=== PATIENT | female | born 1950 | race Caucasian/White ===

== ENCOUNTER → 2016-11-26 | Outpatient (CLI) | payer OTHER ==
[2016-11-26 13:02] LABS: ESTIMATED AVERAGE GLUCOSE 123 mg/dl; HA1C FLAG Normal (Normal)
[2016-11-26 13:10] LABS: CALCIUM 9.2 mg/dl (8.5-10.1)
[2016-11-26 13:11] LABS: ALT/SGPT 19 U/L (12-78); AST/SGOT 11 U/L (15-37); BLOOD UREA NITROGEN 16 mg/dl (7-18); BUN/CREATININE RATIO 17.8 (10-20); CARBON DIOXIDE 29 mmol/L (21-32); CHLORIDE 107 mmol/L (98-107); CHOLESTEROL 173 mg/dl (0-200); CREATININE 0.87 mg/dl (0.60-1.20); GLUCOSE 100 mg/dl (70-99); POTASSIUM 4.6 mmol/L (3.5-5.1); SODIUM 141 mmol/L (136-145); TRIGLYCERIDES 100 mg/dl (0-150); VERY LOW DENSITY LIPOPROT CALC 20 mg/dl
[2016-11-26 13:18] LABS: ALB/GLOB RATIO 1.4 (0.9-2); ALKALINE PHOSPHATASE 61 U/L (45-117); CHOLESTEROL/HDL RATIO 2.3; HDL CHOLESTEROL 75 mg/dl; LDL CHOLESTEROL CALCULATED 78 mg/dl
== END | disposition home or self-care (01) ==
LOC: C.LABBFT 08:04
PROVIDERS: ATTEND Nurse Practitioner
DX: R73.01 Impaired fasting glucose (principal)

== ENCOUNTER → 2017-04-08 | Outpatient (CLI) | payer OTHER ==
--- NOTE | 2017-04-08 12:41 | MAMMOGRAPHY REPORT ---
BILATERAL DIGITAL SCREENING MAMMOGRAM WITH CAD: 04/08/2017 CLINICAL HISTORY: Routine screening. Patient has no complaints. TECHNIQUE: Current study was also evaluated with a Computer Aided Detection (CAD) system. Bilateral CC and MLO views were obtained. COMPARISON: Comparison is made to exams dated: 04/07/2016 mammogram, 03/28/2015 mammogram, 03/27/2014 m ammogram, 03/23/2013 mammogram, 03/22/2012 mammogram, and 03/20/2011 mammogram - [facility] enter. BREAST COMPOSITION: The tissue of both breasts is heterogeneously dense, which may obscure small mas ses. FINDINGS: No suspicious masses, calcifications, or areas of architectural distortion are noted in ei ther breast. There has been no significant interval change compared to prior exams. Bilateral benign -appearing calcifications are again noted. IMPRESSION: ACR BI-RADS CATEGORY 2: BENIGN There is no mammographic evidence of malignancy. A 1 year screening mammogram is recommended. The pa tient will receive written notification of the results. Approximately 10% of breast cancers are not detected with mammography. A negative mammographic report should not delay biopsy if a clinically suggestive mass is present. Nataly Okeefe M.D. ah/:04/08/2017 12:12:08 Felt Cutter: Lita BLEVINS(R)(M), [facility] letter sent: Normal 1/2 BI-RADS Code: ACR BI-RADS Category 2: Benign
== END | disposition home or self-care (01) ==
LOC: C.MAMM 10:34
PROVIDERS: ATTEND Nurse Practitioner
DX: Z12.31 Encounter for screening mammogram for malignant neoplasm of breast (principal)

== ENCOUNTER → 2017-04-22 | Outpatient (CLI) | payer OTHER | END | disposition home or self-care (01) | LOC: C.PAPS 14:04 | PROVIDERS: ATTEND Obstetrics & Gynecology | DX: Z12.4 Encounter for screening for malignant neoplasm of cervix (principal); Z11.51 Encounter for screening for human papillomavirus (HPV) ==

== ENCOUNTER → 2017-06-07 | Outpatient (CLI) | payer OTHER ==
[2017-06-07 12:21] LABS: MEAN CELL VOLUME 90.3 fL (80-100); MEAN CORPUSCULAR HEMOGLOBIN 30.5 pg (25-34); MEAN CORPUSCULAR HGB CONC 33.7 g/dl (32-36); MEAN PLATELET VOLUME 9.5 fL (7.4-10.4); PLATELET COUNT 272 K/uL (130-400); RED BLOOD COUNT 4.76 M/uL (4.2-5.4); WHITE BLOOD COUNT 5.73 K/uL (4.8-10.8)
[2017-06-07 12:28] LABS: ALT/SGPT 22 U/L (12-78); BLOOD UREA NITROGEN 14 mg/dl (7-18); BUN/CREATININE RATIO 15.6 (10-20); CARBON DIOXIDE 29 mmol/L (21-32); CHLORIDE 104 mmol/L (98-107); CREATININE 0.92 mg/dl (0.60-1.20); GLUCOSE 110 mg/dl (70-99); POTASSIUM 4.6 mmol/L (3.5-5.1); SODIUM 139 mmol/L (136-145)
[2017-06-07 12:30] LABS: ALB/GLOB RATIO 1.1 (0.9-2); ALKALINE PHOSPHATASE 76 U/L (45-117); AST/SGOT 14 U/L (15-37); ESTIMATED AVERAGE GLUCOSE 120 mg/dl; HA1C FLAG Normal (Normal)
[2017-06-07 12:30] LABS: CHOLESTEROL/HDL RATIO 2.8
== END | disposition home or self-care (01) ==
LOC: C.LABBFT 07:47
PROVIDERS: ATTEND Nurse Practitioner
DX: E78.00 Pure hypercholesterolemia, unspecified (principal); R73.01 Impaired fasting glucose; I47.1 Supraventricular tachycardia

== ENCOUNTER → 2017-09-08 | Outpatient (CLI) | payer OTHER | END | disposition home or self-care (01) | LOC: C.PATHSPEC 16:32 | PROVIDERS: ATTEND Physician Assistant | DX: L57.0 Actinic keratosis (principal) ==

== ENCOUNTER → 2017-10-04 | Outpatient (CLI) | payer OTHER ==
--- NOTE | 2017-10-04 09:51 | DIAGNOSTIC IMAGING REPORT ---
C-SPINE ROUTINE 4 OR 5 VIEWS CLINICAL HISTORY: Neck stiffness. COMPARISON STUDY: No previous studies for comparison. FINDINGS: Alignment of the cervical spine is anatomic. There is no fracture or suspicious lesion. Vertebral body heights are maintained. There is moderate multilevel bony neural foraminal narrowing. There is mild disc space narrowing at C5-C6. There is moderate multilevel facet arthrosis. There is uncovertebral hypertrophy. IMPRESSION: 1. No acute cervical spine fracture or subluxation. 2. Moderate multilevel bony neural foraminal narrowing. Moderate multilevel facet arthrosis and mild to moderate multilevel degenerative disc disease. Electronically signed by: Figueroa Cain M.D. 10/04/2017 9:49 AM Dictated Date/Time: 10/04/2017 9:45 AM
== END | disposition home or self-care (01) ==
LOC: C.RAD 09:04
PROVIDERS: ATTEND Nurse Practitioner
DX: M43.6 Torticollis (principal)

== ENCOUNTER → 2017-11-08 | Outpatient (CLI) | payer OTHER ==
--- NOTE | 2017-11-08 10:46 | DIAGNOSTIC IMAGING REPORT ---
CT LUNG SCREENING, LOW DOSE WITH COMPUTER-AIDED DETECTION (CAD) CLINICAL HISTORY: Tobacco use. COMPARISON STUDY: No previous studies for comparison. CT DOSE: 71.91 mGy.cm TECHNIQUE: Low-dose helical CT was acquired without intravenous contrast from lung apices to bases and reconstructed at 2.5 mm every 2 mm. CAD was utilized for this study. A dose lowering technique was utilized adhering to the principles of ALARA. FINDINGS: The central airways are patent. No pleural effusions. No pneumothorax. No suspicious lytic or blastic osseous lesions. The distal spinal lymph nodes measure subcentimeter in short axis diameter. No hilar lymphadenopathy. There is a left-sided aortic arch with an apparent right subclavian artery. Normal caliber thoracic aorta. The heart is normal in size. Limited views of the upper abdomen demonstrate a normal liver and spleen. The visualized adrenal glands are unremarkable. Mild emphysema. There are 2 nodules within the right lung apex on image 12 and a tiny nodule within the left upper lobe on image 33. Dominant spiculated partially solid nodule (nodule 1) within the right lower lobe on image 57. These are described below. Nodule 1 Category: 4B Nodule 1 Status: Baseline Nodule 1 Description: Part-solid Nodule 1 Lesion ID: 1 Nodule 1 Slice Number: 68 Nodule 1 Volume (mm3): 4596 Nodule 1 Major [place] mm: 27.9 Nodule 1 Minor [place] mm: 20.9 Nodule 2 Category: 2 Nodule 2 Status: Baseline Nodule 2 Description: Non-solid Nodule 2 Lesion ID: 7 Nodule 2 Slice Number: 91 Nodule 2 Volume (mm3): 118 Nodule 2 Major [place] mm: 7.2 Nodule 2 Minor [place] mm: 6.1 Nodule 3 Category: 2 Nodule 3 Status: Baseline Nodule 3 Description: Solid Nodule 3 Lesion ID: 9 Nodule 3 Slice Number: 112 Nodule 3 Volume (mm3): 47 Nodule 3 Major [place] mm: 5.3 Nodule 3 Minor [place] mm: 3.5 IMPRESSION: 1. Dominant partially solid nodule within the right lower lobe which is spiculated and highly suspicious for a malignancy as described below. Tissue sampling/surgical consultation is recommended for further evaluation. 2. A few additional subcentimeter nodules as described above. These require continued follow-up/moderate. CAD FINDINGS: Overall Lung RADS Category: 4B Lung RADS Management Recommendation: Tissue sampling/surgical consultation is recommended. PET/CT may also be of benefit for the dominant nodule only. Lung RADS Follow Up Date: Lung RADS Nodule ID: 1 Electronically signed by: Steve Urena M.D. 11/08/2017 10:45 AM Dictated Date/Time: 11/08/2017 10:18 AM
== END | disposition home or self-care (01) ==
LOC: C.CTS 10:06
PROVIDERS: ATTEND Nurse Practitioner
DX: Z87.891 Personal history of nicotine dependence (principal); R91.8 Other nonspecific abnormal finding of lung field

== ENCOUNTER → 2017-11-18 | Outpatient (CLI) | payer OTHER ==
[~2017-11-18] MED LIST: AMLO5TAB2 PO; ATOR-22 PO; CHOL2000 PO; CINN1CAP2 PO; COEN200T PO; CYAN10005 PO; MAGN400T6 PO; OMEG12006 PO
--- NOTE | 2017-11-18 14:17 | DIAGNOSTIC IMAGING REPORT ---
CHEST SUPERDIMENSIONAL WITHOUT CLINICAL HISTORY: 67 years-old Female presenting with R91.[address] lung screening R91.8 Lung nodules. TECHNIQUE: Multidetector CT imaging of the chest was performed without the use of intravenous contrast. IV contrast: None. A dose lowering technique was used consistent with the principles of ALARA (as low as reasonably achievable). COMPARISON: 11/08/2016. CT DOSE (mGy.cm): The estimated cumulative dose is 334.47 mGy.cm. FINDINGS: Agency Sales Representative topogram: Unremarkable. On soft tissue windows, normal thyroid and thoracic inlet. Subcentimeter mediastinal lymph nodes likely reactive. Dilation of the kishan limited in the absence of intravenous contrast. Atherosclerosis of the aorta. Normal heart size. Coronary artery and aortic valve calcification. No pericardial or pleural effusion. Few well-defined hypodense lesions scattered throughout the liver indeterminate but likely hepatic cysts or hamartomas. On lung windows, irregular partially solid partially groundglass opacity in the superior segment of the right lower lobe (series 4 image 112). The irregularity of the shape of this focal consolidation makes measurement difficult. Allowing for this, this is less than 2 cm in diameter. Mosaic attenuation noted at the lung bases likely indicating small airways disease. Trace apical emphysema. 2 adjacent subsolid nodules measure approximately 3 mm at the right apex (series 4 image 25). Few additional scattered punctate groundglass and solid nodules. Central airways patent. On bone windows, degenerative changes of the spine. IMPRESSION: 1. Unchanged irregular partially solid partially subsolid nodular consolidation in the superior segment of the right lower lobe. Neoplasm cannot be excluded, especially in an adenomatous lesion. 2. Smoking related lung injury evidenced by trace emphysema and suspected respiratory bronchiolitis. Electronically signed by: Von Banerjee M.D. 11/18/2017 2:16 PM Dictated Date/Time: 11/18/2017 2:04 PM
[2017-11-18 14:44] LABS: BASO % 0.4 %; BASO ABS # 0.03 K/uL (0-0.2); EOS % 1.2 %; EOS ABS # 0.09 K/uL (0-0.5); HEMOGLOBIN 14.1 g/dL (12.0-16.0); IG# 0.01 K/uL (0.00-0.02); LYMPH % 31.9 %; LYMPH ABS # 2.45 K/uL (1.2-3.4); MEAN CELL VOLUME 87.8 fL (80-100); MEAN CORPUSCULAR HEMOGLOBIN 30.2 pg (25-34); MEAN CORPUSCULAR HGB CONC 34.4 g/dl (32-36); MEAN PLATELET VOLUME 9.3 fL (7.4-10.4); MONO % 5.6 %; MONO ABS # 0.43 K/uL (0.11-0.59); NEUT % 60.8 %; NEUT ABS # 4.66 K/uL (1.4-6.5); PLATELET COUNT 276 K/uL (130-400); RED CELL DISTRIBUTION WIDTH CV 13.6 % (11.5-14.5); RED CELL DISTRIBUTION WIDTH SD 43.4 fL (36.4-46.3); WHITE BLOOD COUNT 7.67 K/uL (4.8-10.8)
[2017-11-18 14:54] LABS: BLOOD UREA NITROGEN 20 mg/dl (7-18); CALCIUM 8.9 mg/dl (8.5-10.1); CARBON DIOXIDE 29 mmol/L (21-32); CREATININE 1.03 mg/dl (0.60-1.20); GLUCOSE 185 mg/dl (70-99); POTASSIUM 3.7 mmol/L (3.5-5.1); SODIUM 139 mmol/L (136-145)
== END | disposition home or self-care (01) ==
LOC: C.CTS 12:49
PROVIDERS: ATTEND Surgery
DX: Z01.812 Encounter for preprocedural laboratory examination (principal); R91.8 Other nonspecific abnormal finding of lung field

== ENCOUNTER → 2017-11-24 | Outpatient (CLI) | payer OTHER ==
[~2017-11-24] MED LIST changes: +RXC5 PO
--- NOTE | 2017-11-24 13:15 | DIAGNOSTIC IMAGING REPORT ---
PET/CT SKULL-THIGH CLINICAL HISTORY: 67 years-old Female with PULMONARY NODULE. Follow-up study in a patient with history of pulmonary nodules COMPARISON: Low-dose lung screening CT 11/08/2017, super dimensional chest CT 11/18/2017 TECHNIQUE: The patient was injected with 13.16 mCi of F-18 fluorodeoxyglucose (FDG) and an emission scan was performed from the skull vertex to the toes. Noncontrast CT was performed for attenuation correction and anatomic localization. The blood glucose level was 106 mg/dl. FINDINGS: HEAD AND NECK: Mildly increased metabolic activity about the oral pharynx, submandibular tissues and glottis is likely physiologic. No pathologic hypermetabolic foci identified. CHEST: Increased tracer uptake about the left sternoclavicular joint is likely degenerative in nature. Slightly increased metabolic activity about the left hilum with SUV max of 2.9 as seen on image 55 of the whole body attenuation correction series likely correlates with adjacent pulmonary vascularity. No definite pathologically enlarged hypermetabolic adenopathy identified. Focal area of increased FDG activity is noted within the mid esophagus, SUV max of 3.6 correlating with focal area of apparent mild wall thickening, image [address] images. Mixed groundglass and solid nodule with spiculated and ill-defined margins within the superior segment of the right lower lobe is again seen on image 65 series 2 which has not significant changed in size and appearance measuring 2.1 x 1.6 cm. There is only slightly increased metabolic activity associated with this nodule, SUV max of 2.1. Background normal lung demonstrates SUV max of 0.7. No additional hypermetabolic foci identified. The previously described 2 groundglass nodules of the right lung apex measuring up to 7 mm are likely below resolution in size for PET and demonstrate no appreciable hypermetabolic activity. ABDOMEN AND PELVIS: There is a physiologic distribution of activity within the liver, spleen, adrenal glands, gastrointestinal and urinary tracts, with no hypermetabolic foci. MUSCULOSKELETAL SYSTEM AND EXTREMITIES: There is a physiologic distribution of activity within the bone marrow, with no hypermetabolic foci. ADDITIONAL CT FINDINGS: There are a few mildly prominent nonenlarged lymph nodes about the mediastinum including a 9 mm right paratracheal lymph node on image 52 series 2, possibly reactive. Coronary arterial disease. Mild dependent bibasilar subsegmental atelectasis. Calcifications of the bilateral breast parenchyma. Colonic diverticulosis without evidence of acute diverticulitis. Decompressed urinary bladder. Moderate to extensive calcification of the aorta without aneurysm. No suspicious lytic or blastic bony lesions. Mild multilevel facet arthrosis of the lower lumbar spine. IMPRESSION: 1. Mixed groundglass and solid nodule with spiculated and ill-defined margins within the superior segment of the right lower lobe measuring 2.1 x 1.6 demonstrates only slightly increased metabolic activity. These findings are suspicious for primary bronchogenic carcinoma, likely adenocarcinoma. 2. Subcentimeter groundglass nodules of the apical segment right upper lobe measuring up to 7 mm are likely below limits in size for PET and demonstrate no appreciable hypermetabolic activity. This however does not exclude the possibility of additional site of neoplasm. Follow-up recommended. 3. No hypermetabolic adenopathy to suggest lymphatic metastasis. 4. Increased tracer activity within the region of the left sternoclavicular joint without lesion seen on the CT images is likely degenerative in nature. 5. Focal area of increased FDG activity is noted within the mid esophagus with associated apparent mild wall thickening. These findings could be correlated with endoscopy The above report was generated using voice recognition software. It may contain grammatical, syntax or spelling errors. Electronically signed by: Aubrey Holm M.D. 11/24/2017 1:13 PM Dictated Date/Time: 11/24/2017 12:56 PM
== END | disposition home or self-care (01) ==
LOC: C.PET 09:29
PROVIDERS: ATTEND Surgery
DX: R91.1 Solitary pulmonary nodule (principal)

== ENCOUNTER 2017-11-25 08:32 | Inpatient (IN) | payer OTHER ==
[2017-11-18 15:29] VITALS: BMI 28.0
[~2017-11-25] VITALS: Ht 160 cm; Wt 73.6 kg
[2017-11-25] VITALS (7 sets, daily range): BP systolic 123–168; BP diastolic 72–88; PULSE 62–86; TEMP 36.4–36.8; O2SAT 93–97; Ht 160 cm; Wt 73.6 kg
[~2017-11-25 08:32] MED LIST changes: +LACTATED RINGER'S 1000ML 1,000 ML IV SCH; -RXC5 PO
[2017-11-25] MEDS ORDERED: ONDANSETRON INJ 2 MG/ML 2 ML VIAL IV PRN ×2 (09:45→15:30)
[2017-11-25] MEDS ORDERED: EpHEDrine SULFATE INJ 50 MG/ML AMP IV PRN (09:45)
[2017-11-25] MEDS ORDERED: MEPERIDINE HCL 25 MG/ML CARP IV PRN (09:45)
[2017-11-25] MEDS ORDERED: HYDROmorphone INJ 2 MG/ML SYR/VIAL IV PRN (09:45)
[2017-11-25] MEDS ORDERED: LABETALOL HCL IV 5 MG/ML 20ML IV PRN (09:45)
[2017-11-25] MEDS ORDERED: ATROPINE SULFATE 0.1 MG/ML 5ML SYR IV PRN (09:45)
[2017-11-25] MEDS ORDERED: NEOSTIGMINE METHYLSULFATE 5 MG/5 ML SYR ONE ×2 (09:50→15:19)
[2017-11-25] MEDS ORDERED: LIDOCAINE HCL 2% 2 ML VIAL (20MG/ML) ONE (09:50)
[2017-11-25] MEDS ORDERED: DEXAMETHASONE SOD INJ 4 MG/ML VIAL ONE (09:50)
[2017-11-25] MEDS ORDERED: FENTANYL CITRATE INJ 50 MCG/1 ML 2 ML VIAL ONE ×4 (09:50→14:58)
[2017-11-25] MEDS ORDERED: ONDANSETRON INJ 2 MG/ML 2 ML VIAL ONE ×2 (09:50→15:19)
[2017-11-25] MEDS ORDERED: GLYCOPYRROLATE INJ 0.2 MG/ML VIAL ONE ×2 (09:50→15:19)
[2017-11-25] MEDS ORDERED: MIDAZOLAM HCL 1 MG/ML 2ML VIAL ONE (09:50)
[2017-11-25] MEDS ORDERED: PROPOFOL IV EMULSION 10 MG/ML 20 ML VIAL IV ONE ×2 (09:50→15:21)
[2017-11-25] MEDS ORDERED: BUPIVACAINE LIPOSOME 1/3% 266 MG/20 ML VIAL INFIL ONE (10:53)
[2017-11-25] MEDS ORDERED: SODIUM CHLORIDE 0.9% PF 50 ML VIAL ONE ×2 (10:53)
[2017-11-25] MEDS ORDERED: BUPIVACAINE 0.5 % 5 MG/1 ML MPF 30ML VIAL ONE (10:53)
--- NOTE | 2017-11-25 11:16 | History & Physical Bridge Note ---
H&P Re-Evaluation Bridge Note: I have examined the patient, reviewed the History & Physical and in the interval since the performance of the History & Physical I have noted the following changes of clinical significance: No changes noted
[2017-11-25] MEDS ORDERED: METHYLENE BLUE 0.5% 10 ML VIAL ONE (11:35)
[2017-11-25] MEDS ORDERED: CLINDAMYCIN PHOS 150 MG/ML 2 ML VIAL ONE ×2 (11:52→11:53)
[2017-11-25] MEDS ORDERED: PHENYLEPHRINE 100MCG/ML 5ML SYR ONE (13:02)
[2017-11-25] MEDS ORDERED: ROCURONIUM BROMIDE 10 MG/ML 5 ML VIAL IV ONE (13:33)
--- NOTE | 2017-11-25 15:13 | [facility] Post Operative Brief Note ---
Immediate Operative Summary Operative Date Nov 25, 2017. Pre-Operative Diagnosis Abnormal CT Scan Lung screening with suspicious mass right lower lobe Post-Operative Diagnosis Abnormal CT Scan Lung screening with suspicious mass right lower lobe Procedure(s) Performed Right Video Assisted Thorocoscopy with Right Upper Lobe Wedge Resection, Right Lower Lobectomy, Lymph node Biopsies Surgeon Dr. Hunter Line Repairer Tower Surgeon(s) Yovani Choi PA-C Estimated Blood Loss 50 ml Findings Consistent with Post-Op Diagnosis Specimens Frozen Specimen #1- Right Upper Lobe [place] sent at 1300 #2- Right upper lobe [place] #2 sent at 1447 #3- Right Lower Lobe Sent at 1455 Permanent Specimen A: R9 Lymph Node B: R8 Lypmph Node C: Level 7 lymph node D: R10 Lymph Node. E: R12 Lymph node X4 F: R11 Lymph node G: R4 Lymph node H: R2 Lymph node Anesthesia Type General
[2017-11-25] MEDS ORDERED: TISSEEL FIBRIN SEALANT 10ML TOP ONE (15:15)
[2017-11-25] MEDS: FENTANYL CITRATE INJ 50 MCG/1 ML 2 ML VIAL IV PRN ×2 (15:55→16:00)
--- NOTE | 2017-11-25 15:55 | DIAGNOSTIC IMAGING REPORT ---
CHEST ONE VIEW PORTABLE HISTORY: 67 years-old Female RLL acute cough with suspected pneumonia and pulmonary nodules COMPARISON: PET CT 11/24/2017 TECHNIQUE: Portable AP view of the chest FINDINGS: Linear subsegmental left basilar and left perihilar opacities are noted with hypoinflation and mild bronchovascular crowding. Right-sided chest tube is noted with distal tip projecting adjacent to the right lung apex. Surgical suture material is seen within the right upper lobe. Subcutaneous emphysema of the right lateral chest wall. Trace right-sided pneumothorax, pleural separation of 5 mm. Cardiac silhouette is upper limits of normal in size. Atherosclerosis of the aorta. Bones of the chest appear grossly intact. IMPRESSION: 1. Postoperative changes of the right upper lobe with distal portion of right-sided chest tube adjacent to the right lung apex. 2. Tiny apical right-sided pneumothorax. 3. Hypoinflation with atelectasis. The above report was generated using voice recognition software. It may contain grammatical, syntax or spelling errors. Electronically signed by: Aubrey Holm M.D. 11/25/2017 3:54 PM Dictated Date/Time: 11/25/2017 3:49 PM
--- NOTE | 2017-11-25 16:09 | Anesthesiology Progress Note ---
Anesthesia Post Op Note Date & Time Nov 25, 2017 at 16:09 Vital Signs Pain Intensity: 5.0 Vital Signs Past 12 Hours Date Time Temp Pulse Resp B/P (MAP) Pulse Ox O2 Delivery O2 Flow Rate FiO2 11/25/17 15:55 70 16 130/56 97 Oxymask 3 11/25/17 15:45 71 16 116/58 96 Oxymask 5 11/25/17 15:36 36.0 76 16 117/67 98 Oxymask 10 11/25/17 08:58 36.8 72 20 168/88 (114) 97 Room Air Notes Mental Status: alert / awake / arousable, participated in evaluation Pt Amnestic to Procedure: Yes Nausea / Vomiting: adequately controlled Pain: adequately controlled Airway Patency, RR, SpO2: stable & adequate BP & HR: stable & adequate Hydration State: stable & adequate Anesthetic Complications: no major complications apparent Pt awake, doing well, VSS. Still requiring O2 via NC to maintain sat. Will keep patient on NC.
[2017-11-25] MEDS: MoRPHine SULFATE 2 MG/ML CARP IV PRN ×2 (16:55→21:12)
[2017-11-25] MEDS: KETOROLAC TROMETHAMINE 15 MG/ML VIAL IV. SCH (17:51)
[2017-11-25] MEDS: METOCLOPRAMIDE HCL INJ 5 MG/ML 2 ML VIAL IV. SCH (17:51)
[2017-11-25] MEDS: ACETAMINOPHEN IV 1,000 MG in EMPTY BAG 0 ML IV SCH (18:00)
--- NOTE | 2017-11-25 19:17 | OPERATIVE REPORT ---
DATE OF OPERATION: 11/25/2017 PREOPERATIVE DIAGNOSES: 1. Hypermetabolic mass right lower lobe. 2. Small nodules at apex right upper lobe. POSTOPERATIVE DIAGNOSIS: Adenocarcinoma right lower lobe. PROCEDURES: 1. Robot-assisted thoracoscopic wedge resection right upper lobe x2. 2. Robot-assisted thoracoscopic right lower lobectomy. 3. Robot-assisted thoracoscopic mediastinal lymphadenectomy. SURGEON: Gibran Hunter MD MARINE FIREMAN: GENARO Jang (Mr. Choi was present for the entire case and was at the patient's bedside while I was at the consult. He was instrumental in the case and closed the skin incisions at the conclusion.) ANESTHESIA: General anesthesia endotracheal intubation using double lumen tube. SPECIFICS OF PROCEDURE: Usha Willoughby (Vic) is a very nice 67-year-old female with a long history of cigarette smoking, who was found to have a mass in her right lower lobe which was hypermetabolic. She had couple small nodules in the apex of her right upper lobe also. We worked her up and felt she would be a candidate for surgery and on 11/25/2017 I brought the patient to the operating room, wedged out her upper lobe apex. We could not find any nodules. I did this twice in fact. These were simple frozen section. However, when they did not find a nodule, they sent her off for permanent sections. I was going to wedge out the medial aspect of the lower lobe; however, this was between the superior and inferior pulmonary veins posteriorly and I really could not get a good wedge biopsy. For this reason, I elected to proceed with a lobectomy. She tolerated it quite well with no air leak at conclusion of case. Bronchial margins were negative. Frozen section showed this mass to be an adenocarcinoma. She was x-rayed in the room. DESCRIPTION OF PROCEDURE: Patient was brought to operating room and laid in supine position. General anesthesia induced and endotracheal intubation was performed with a double lumen tube. Patient was placed in left lateral decubitus position, right chest prepped and draped in usual sterile fashion. After properly positioning, appropriate timeout was called and antibiotics were given. Four port sites were placed, 1 posteriorly with a 5 mm port, two 8 mm ports were placed, 1 a bit more posteriorly, 1 in anterior and then 1 just a bit anterior to the mid axillary line with a 12 mm camera port. We then placed a 15 mm assistance port just above the costal margins, a few interspaces below her other ports. Carbon dioxide was then insufflated and it could be seen there were really no adhesions. Upon going in, we had good isolation. I wedged out the upper lobe mass. I did not see anything, so I went back and took a larger portion out. Still did not palpate or see anything on frozen sections. She had no air leak and no bleeding from this. I then retracted the lung anteriorly and dissected out the posterior pleura and sent off a level 8 and level 9 nodes. I freed up the inferior pulmonary vein and came up and actually freed up the space between the inferior pulmonary vein, superior pulmonary vein, went up to biopsy level 10 and level 7 nodes. Also got a level 11 node from this area. I then allowed the lung to fall back posteriorly and then went into the fissure. I developed the anterior fissure by dividing the attachments and then got down and identified the artery and the bronchus. I then identified the right middle lobe bronchus which actually came off fairly low. A HARDY stapler was fired across the parenchyma below this to complete the fissure. This helped our visualization greatly. I then freed up the anterior to the vessels and then came down laterally and I was able to free this up completely, so I could fire an Endo-HARDY stapler across the posterior fissure to complete this. From here it was fairly easy to dissect out the lymph nodes and then fired Endo-HARDY stapler across the pulmonary artery lower lobe just below the takeoff of the right middle lobe. Freed things up nicely and then I fired the Endo-HARDY stapler across the bronchus, but I had to do it low enough so that we did not compromise the middle lobe and this was carried out without difficulty. We then fired Endo-HARDY stapler across the lower lobe vein and delivered; however, prior to delivering this mass off the field I dissected out a mat of nodes in the level 4 and level 2 areas on the right. We really had very little bleeding in this case. An Endobag was used to grasp the right lower lobe. The insistence incision was extended a bit and we removed this lobe. This was sent for frozen section and while waiting for this, we injected Exparel. 266 mg of Exparel were mixed with 50 mL of 0.5% bupivacaine and 150 mL of normal saline injected from the 2nd all the way down to the 11th rib laterally. I also injected every incision that we made. We really had no significant bleeding. A 24-Jamaican chest tube was placed through the anterior most thoracoscopy port and directed towards the apex and sutured in place, heavy silk suture. Two lung ventilation ensued. The right middle lobe expanded nicely. There was no air leak and no bleeding. We did spray Tisseel over the vessels and the bronchus. We really had no air leak at conclusion of the case. The robot was then undocked. We removed all of our trocars. The 12 mm camera port and the larger assistance port were closed with 0 Vicryl, in running 2-inch fashion closed the muscle layers. 4-0 Monocryl was used in running subcuticular fashion to approximate the wound edges of each of the incisions. The patient was extubated in the room without difficulty and had no air leak. She looked quite good upon extubation. I attest to the content of the Intraoperative Record and any orders documented therein. Any exception s are noted below.
[2017-11-25] MEDS: D5W AND 1/2NSS 1,000 ML IV SCH (20:24)
[2017-11-25] MEDS: ATORVASTATIN 20 MG TAB PO SCH (21:11)
[2017-11-25] MEDS: DOCUSATE SODIUM 100 MG CAP PO SCH (21:11)
[2017-11-26] VITALS (9 sets, daily range): BP systolic 137–183; BP diastolic 50–81; PULSE 66–99; TEMP 36.7–36.8; O2SAT 91–95
[2017-11-26] MEDS: METOCLOPRAMIDE HCL INJ 5 MG/ML 2 ML VIAL IV. SCH ×2 (01:41→09:33)
[2017-11-26] MEDS: KETOROLAC TROMETHAMINE 15 MG/ML VIAL IV. SCH ×3 (01:41→17:41)
[2017-11-26] MEDS: ACETAMINOPHEN IV 1,000 MG in EMPTY BAG 0 ML IV SCH (01:41)
[2017-11-26 05:57] LABS: BASO % 0.1 %; BASO ABS # 0.01 K/uL (0-0.2); HEMATOCRIT 37.1 % (37-47); HEMOGLOBIN 13.1 g/dL (12.0-16.0); IG# 0.01 K/uL (0.00-0.02); MEAN CELL VOLUME 87.1 fL (80-100); MEAN CORPUSCULAR HEMOGLOBIN 30.8 pg (25-34); MEAN CORPUSCULAR HGB CONC 35.3 g/dl (32-36); MEAN PLATELET VOLUME 9.1 fL (7.4-10.4); MONO % 6.1 %; MONO ABS # 0.66 K/uL (0.11-0.59); NEUT % 81.7 %; NEUT ABS # 8.87 K/uL (1.4-6.5); PLATELET COUNT 238 K/uL (130-400); RED CELL DISTRIBUTION WIDTH CV 13.2 % (11.5-14.5); RED CELL DISTRIBUTION WIDTH SD 42.3 fL (36.4-46.3); WHITE BLOOD COUNT 10.85 K/uL (4.8-10.8)
[2017-11-26] MEDS: D5W AND 1/2NSS 1,000 ML IV SCH (06:01)
[2017-11-26 06:30] LABS: CALCIUM 8.3 mg/dl (8.5-10.1); CREATININE 0.75 mg/dl (0.60-1.20); POTASSIUM 4.1 mmol/L (3.5-5.1)
--- NOTE | 2017-11-26 07:47 | Clinical Documentation Query ---
Dr. SANATCRUZ TIFFANIE : CLINICAL DOCUMENTATION QUERIES QUERY 1 OF 2 Patient is a 67 year old female who on 11/25 underwent: 1. Robot-assisted thoracoscopic wedge resection right upper lobe x2. 2. Robot-assisted thoracoscopic right lower lobectomy. 3. Robot-assisted thoracoscopic mediastinal lymphadenectomy. Postoperative diagnosis was adenocarcinoma right lower lobe (of the lung). As appropriate, please specify your opinion regarding the likelihood of this being a primary versus metastatic process as able. Thank you. In your clinical opinion is this patient being managed for: ( ) Primary adenocarcinoma right lower lobe of lung ( ) Secondary/metastatic adenocarcinoma right lower lobe of lung ( ) Not Agree ( ) Other explanation of clinical findings (Please Explain) ( ) Unable to determine (Please Define) ( ) Need to Discuss The medical record reflects the following clinical findings, treatment, and risk factors. Clinical Indicators: As above Treatment: Procedures for histologic analysis as above Risk Factors: Smoking QUERY 2 OF 2 Consider explicit documentation of postoperative chest radiograph findings as suggested below as clinically appropriate as this directly impacts accurate DRG assignment. Thank you. In your clinical opinion is this patient being managed for: ( ) Postprocedural pneumothorax, expected, not a complication of care ( ) Not Agree ( ) Other explanation of clinical findings (Please Explain) ( ) Unable to determine (Please Define) ( ) Need to Discuss The medical record reflects the following clinical findings, treatment, and risk factors. Clinical Indicators: As above Treatment: Closed chest drainage Risk Factors: Thorascopic wedge resections and right lower lobectomy Please clarify and document your clinical opinion in the progress notes and discharge summary. Terms such as "probable", "suspected", "likely", "questionable", "possible", or "still to be ruled out" are acceptable. IF IN AGREEMENT, YOU MUST DOCUMENT ABOVE DIAGNOSTIC STATEMENT IN DAILY PROGRESS NOTES AND DISCHARGE SUMMARY. This document is not part of the patient's record. Thank You, Josué Fitzpatrick, RUSS [phone]
--- NOTE | 2017-11-26 07:48 | DIAGNOSTIC IMAGING REPORT ---
CHEST ONE VIEW PORTABLE HISTORY: Postop. Right lower lobectomy. COMPARISON: Chest 11/25/2017. FINDINGS: Right chest tube terminates in the right lung apex. This remains unchanged. Tiny right apical pneumothorax is also similar demonstrating a maximal pleural gap of 7 mm. No pleural effusions. Small amount of right chest wall subcutaneous emphysema. Elevation of the right hemidiaphragm due to the postoperative change. Linear densities at the left lung base consistent with subsegmental atelectasis or scarring. Right suprahilar density with suture material consistent with postoperative change. IMPRESSION: Overall, no significant change compared to the prior study. Tiny right pneumothorax persists. Electronically signed by: Steve Urena M.D. 11/26/2017 7:46 AM Dictated Date/Time: 11/26/2017 7:45 AM
--- NOTE | 2017-11-26 07:59 | Anesthesiology Progress Note ---
Anesthesia Post Op Note Date & Time Nov 26, 2017 at 07:59 Vital Signs Pain Intensity: 0.0 Vital Signs Past 12 Hours Date Time Temp Pulse Resp B/P (MAP) Pulse Ox O2 Delivery O2 Flow Rate FiO2 11/26/17 07:43 Room Air 11/26/17 07:30 36.7 93 16 150/77 (101) 95 Room Air 11/26/17 05:39 36.7 78 18 168/75 (106) 91 Room Air 11/26/17 03:30 36.8 73 14 145/74 (97) 94 Room Air 11/26/17 01:36 36.7 66 16 148/62 (90) 92 Room Air 11/26/17 00:53 Room Air 11/25/17 23:35 36.8 69 17 160/72 (101) 93 Room Air Notes Mental Status: alert / awake / arousable, participated in evaluation Pt Amnestic to Procedure: Yes Nausea / Vomiting: adequately controlled Pain: adequately controlled Airway Patency, RR, SpO2: stable & adequate BP & HR: stable & adequate Hydration State: stable & adequate Anesthetic Complications: no major complications apparent
[2017-11-26] MEDS: ENOXAPARIN 40 MG/0.4 ML SYR SQ SCH (08:27)
[2017-11-26] MEDS: ACETAMINOPHEN 325 MG TAB PO SCH ×3 (08:27→20:13)
[2017-11-26] MEDS: DOCUSATE SODIUM 100 MG CAP PO SCH ×2 (08:27→20:32)
[2017-11-26] MEDS: AMLODIPINE BESYLATE 5 MG TAB PO SCH (08:27)
[2017-11-26] MEDS: MAGNESIUM OXIDE 400 MG TAB PO SCH (08:27)
[2017-11-26] MEDS: ATORVASTATIN 20 MG TAB PO SCH (20:31)
[2017-11-26] MEDS: MoRPHine SULFATE 2 MG/ML CARP IV PRN (20:32)
--- NOTE | 2017-11-26 23:53 | PROGRESS NOTE ---
DATE: 11/26/2017 Ms. Willoughby was seen today on 11/26/2017. She is 1 day status post a robot-assisted thoracoscopic right lower lobectomy and mediastinal lymphadenectomy. She looks great. Her x-ray shows no evidence of effusion or pneumothorax. She has no air leak. She has a scant amount of drainage. She is on room air and has been ambulating in the hallway. She does have some pain. Quite frankly, I think she looks good. She sounds good on auscultation. I am going to remove her chest tube and let her go home tomorrow if she remains stable.
[2017-11-27] MEDS: ACETAMINOPHEN 325 MG TAB PO SCH ×2 (01:51→08:27)
[2017-11-27] MEDS: KETOROLAC TROMETHAMINE 15 MG/ML VIAL IV. SCH ×2 (01:52→10:00)
[2017-11-27 03:05] VITALS: BP 146/73; PULSE 81; TEMP 36.9; O2SAT 92
[2017-11-27 07:43] VITALS: BP 175/76; PULSE 79; TEMP 36.8; O2SAT 93
--- NOTE | 2017-11-27 07:51 | DIAGNOSTIC IMAGING REPORT ---
SINGLE VIEW CHEST CLINICAL HISTORY: Status post right lower lobe resection. FINDINGS: An AP, portable, upright chest radiograph is compared to study dated 11/26/2017 and correlated with chest CT dated 11/08/2017. The examination is degraded by portable technique and patient rotation. The cardiomediastinal silhouette is unremarkable. There is atherosclerotic calcification of the thoracic aorta. A right-sided chest tube is unchanged in position, and there are postoperative changes from right lower lobe resection. A small right apical pneumothorax persists with at least 1.5 cm of apical pleural separation. No airspace consolidation is identified typical for pneumonia. No large pleural effusion is seen. The skeletal structures are osteopenic. The bony thorax is grossly intact. Subcutaneous emphysema is noted along the right chest wall. IMPRESSION: 1. Again seen are postoperative changes from right lower lobe resection. A small right apical pneumothorax persists. 2. The lungs are otherwise clear. Electronically signed by: Juan Miguel Rose M.D. 11/27/2017 7:49 AM Dictated Date/Time: 11/27/2017 7:48 AM
[2017-11-27] MEDS: MAGNESIUM OXIDE 400 MG TAB PO SCH (08:28)
[2017-11-27] MEDS: AMLODIPINE BESYLATE 5 MG TAB PO SCH (08:28)
[2017-11-27] MEDS: DOCUSATE SODIUM 100 MG CAP PO SCH (09:09)
[2017-11-27] MEDS: ENOXAPARIN 40 MG/0.4 ML SYR SQ SCH (09:09)
[2017-11-27] MEDS ORDERED: RXC5 PO (09:11)
--- NOTE | 2017-11-27 09:15 | Discharge Instructions ---
Discharge Instructions Date of Service Nov 27, 2017. Admission Reason for Admission: Lung Nodules Discharge Discharge Diagnosis / Problem: Lung cancer Discharge Goals Goal(s): Decrease discomfort (Use pain meds as ordered.), Learn about illness ( Return to office next week and we will go over he pathology report.) Activity Recommendations Activity Limitations: as noted below Lifting Limitations: gradually increase as tolerated Exercise/Sports Limitations: gradually increase as tolerated May Resume Sexual Activity: when tolerated Shower/Bathe: may shower/bathe in 3 days Driving or Machine Use: resume 3 days after discharge . Instructions / Follow-Up Instructions / Follow-Up Call the hospital and page Dr Hunter for any questions ([phone]). Remove all dressings Wednesday evening and shower. Current Hospital Diet Patient's current hospital diet: Regular Diet Discharge Diet Recommended Diet: Regular Diet Procedures Procedures Performed: Right Video Assisted Thorocoscopy with Right Upper Lobe Wedge Resection, Right Lower Lobectomy, Lymph node Biopsies Pending Studies Studies pending at discharge: yes List of pending studies: Pathology Medical Emergencies . Who to Call and When: Medical Emergencies: If at any time you feel your situation is an emergency, please call 911 immediately. . Non-Emergent Contact Non-Emergency issues call your: Surgeon Contact Number: [phone] and page him. . "Provider Documentation" section prepared by Gibran Hunter. .
[2017-11-27 09:22] VITALS: BP 175/76; PULSE 79; TEMP 36.8; O2SAT 93
--- NOTE | 2017-11-27 09:37 | DIAGNOSTIC IMAGING REPORT ---
SINGLE VIEW CHEST CLINICAL HISTORY: Status post right lower lobe resection. Chest tube removal. FINDINGS: An AP, portable, upright chest radiograph is compared to study performed early the same day 11/27/2017 and correlated with chest CT dated 11/08/2017. The examination is degraded by portable technique and patient rotation. The cardiomediastinal silhouette is unremarkable. There is atherosclerotic calcification of the thoracic aorta. A right-sided chest tube has been removed. There are postoperative changes from right lower lobe resection. A small right apical pneumothorax has mildly increased in size, 10 there is now at least 2 cm of apical pleural separation. No airspace consolidation is identified typical for pneumonia. No large pleural effusion is seen. The skeletal structures are osteopenic. The bony thorax is grossly intact. Subcutaneous emphysema is noted along the right chest wall. IMPRESSION: 1. Again seen are postoperative changes from right lower lobe resection. 2. The right sided chest tube has been removed. A right apical pneumothorax has modestly increased in size from today's earlier examination. 3. The lungs are otherwise clear. Electronically signed by: Juan Miguel Rose M.D. 11/27/2017 9:35 AM Dictated Date/Time: 11/27/2017 9:34 AM
--- NOTE | 2017-11-27 12:26 | DISCHARGE SUMMARY ---
DISCHARGE DIAGNOSIS: Adenocarcinoma, right lower lobe. HOSPITAL COURSE: This is a delightful 67-year-old smoker who was found to have a hypermetabolic mass in her right lower lobe. She also had a couple small nodules in the apex of the right upper lobe. I brought her to the operating room on 11/25/2017, did an uncomplicated robotic wedge resection of the upper lobe and really did not see any masses or palpate them. We then did an uncomplicated right lower lobectomy. She tolerated that quite well. She had no air leak. She was watched on the floor. We pulled her chest tube out on the morning of the 2nd postop day as she had no air leak. She was on room air, ambulating in the hallway, tolerating a regular diet. We do not have final pathology with plans to discharge home on postop day 2. I will see her back later this week to go over her final pathology report and for a postop check. Her incisions were clean and she looked quite good at time of her discharge.
== END 2017-11-27 11:40 | disposition home or self-care (01) | DRG 165 ==
LOC: C.ACU 08:32 → C.MSW 11:10 → ENRESERV 16:05
PROVIDERS: ADMIT Surgery; ATTEND Surgery
PROC: 0BTF4ZZ Resection of Right Lower Lung Lobe, Percutaneous Endoscopic Approach (ICD-10-PCS; principal; 2017-11-25 11:00)
PROC: 0BBC4ZX Excision of Right Upper Lung Lobe, Percutaneous Endoscopic Approach, Diagnostic (ICD-10-PCS; principal; 2017-11-25 11:00)
PROC: 07B74ZX Excision of Thorax Lymphatic, Percutaneous Endoscopic Approach, Diagnostic (ICD-10-PCS; principal; 2017-11-25 11:00)
DX: C34.31 Malignant neoplasm of lower lobe, right bronchus or lung (principal); F17.200 Nicotine dependence, unspecified, uncomplicated; Z79.899 Other long term (current) drug therapy; Z88.8 Allergy status to other drugs, medicaments and biological substances; Z88.5 Allergy status to narcotic agent; Z80.0 Family history of malignant neoplasm of digestive organs

== ENCOUNTER → 2017-12-02 | Outpatient (CLI) | payer OTHER ==
[~2017-12-02] MED LIST changes: -CYAN10005 PO; -LACTATED RINGER'S 1000ML 1,000 ML IV SCH; +RXC5 PO
--- NOTE | 2017-12-02 10:32 | DIAGNOSTIC IMAGING REPORT ---
CHEST 2 VIEWS ROUTINE CLINICAL HISTORY: PULMONARY NODULE COMPARISON STUDY: 11/27/2017 FINDINGS: The cardiac and sternal contours remain stable. There is a suspected right pleural effusion. There are linear scar/atelectatic changes present at the left lung base. There is an area of increased density in the right suprahilar region. This may be postsurgical. There is interval decrease in the size the right apical pneumothorax which now is a pleural separation of 8 mm. IMPRESSION: 1. Interval decrease in the size of the right apical pneumothorax which currently has a pleural separation of 8 mm 2. Postsurgical changes of right lower lobe resection. Small right pleural effusion 3. Nonspecific increased density of the right suprahilar region Electronically signed by: Jesus Pink M.D. 12/02/2017 10:31 AM Dictated Date/Time: 12/02/2017 10:26 AM
== END | disposition home or self-care (01) ==
LOC: C.RAD 10:10
PROVIDERS: ATTEND Surgery
DX: R91.1 Solitary pulmonary nodule (principal); J93.9 Pneumothorax, unspecified

== ENCOUNTER → 2017-12-07 | Outpatient (CLI) | payer OTHER ==
--- NOTE | 2017-12-07 11:26 | DIAGNOSTIC IMAGING REPORT ---
CHEST 2 VIEWS ROUTINE CLINICAL HISTORY: 67 years-old Female presenting with R91.8 Lung [id number]. TECHNIQUE: PA and lateral views of the chest were obtained. COMPARISON: 12/02/2017. FINDINGS: Atherosclerosis of aortic arch. Cardiac silhouette mildly enlarged. Persistent moderate right pleural effusion with right lung volume loss. Postsurgical changes of the right lung with multiple suture margins at the right hilum. The right suprahilar region also demonstrates an opacity that corresponds with the end of the first right rib. No pneumothorax. The left lung demonstrates bandlike opacity at the base, which has evolved since the prior exam. Left pleural space clear. Osseous structures normal. Upper abdomen normal. IMPRESSION: 1. No residual right pneumothorax. 2. Postsurgical changes of the right lung with moderate right pleural effusion. Electronically signed by: Von Banerjee M.D. 12/07/2017 11:25 AM Dictated Date/Time: 12/07/2017 11:22 AM
== END | disposition home or self-care (01) ==
LOC: C.RAD 10:52
PROVIDERS: ATTEND Surgery
DX: R91.8 Other nonspecific abnormal finding of lung field (principal); J90 Pleural effusion, not elsewhere classified

== ENCOUNTER → 2017-12-10 | Outpatient (CLI) | payer OTHER ==
[2017-12-10 12:49] LABS: ALBUMIN 3.2 gm/dl (3.4-5.0); ALT/SGPT 18 U/L (12-78); AST/SGOT 11 U/L (15-37); BLOOD UREA NITROGEN 25 mg/dl (7-18); CARBON DIOXIDE 28 mmol/L (21-32); CREATININE 1.17 mg/dl (0.60-1.20); GLUCOSE 97 mg/dl (70-99); POTASSIUM 4.6 mmol/L (3.5-5.1); SODIUM 138 mmol/L (136-145)
[2017-12-10 12:54] LABS: ALKALINE PHOSPHATASE 79 U/L (45-117); CHOLESTEROL 162 mg/dl (0-200); LDL CHOLESTEROL CALCULATED 96 mg/dl; TOTAL PROTEIN 6.8 gm/dl (6.4-8.2)
[2017-12-10 12:56] LABS: CALCIUM 9.4 mg/dl (8.5-10.1)
[2017-12-10 12:58] LABS: HEMOGLOBIN A1C 6.3 % (4.5-5.6)
== END | disposition home or self-care (01) ==
LOC: C.LABBFT 08:31
PROVIDERS: ATTEND Nurse Practitioner
DX: E78.00 Pure hypercholesterolemia, unspecified (principal)

== ENCOUNTER → 2017-12-16 | Outpatient (CLI) | payer OTHER ==
--- NOTE | 2017-12-16 10:18 | DIAGNOSTIC IMAGING REPORT ---
CHEST 2 VIEWS ROUTINE CLINICAL HISTORY: R91.8 Lung nodule nodule COMPARISON STUDY: 12/07/2017 FINDINGS: Unchanging consolidative and/or effusion-type change right lung base. No significant pneumothorax. Left lung is clear. Interval resolution of the platelike atelectasis left base. IMPRESSION: Stable postoperative changes right hemithorax with unchanging consolidative change right base. Lungs otherwise appear clear. The above report was generated using voice recognition software. It may contain grammatical, syntax or spelling errors. Electronically signed by: Nadir Doyle M.D. 12/16/2017 10:17 AM Dictated Date/Time: 12/16/2017 10:16 AM
== END | disposition home or self-care (01) ==
LOC: C.RAD 09:51
PROVIDERS: ATTEND Physician Assistant
DX: R91.8 Other nonspecific abnormal finding of lung field (principal)

== ENCOUNTER → 2018-03-16 | Outpatient (CLI) | payer OTHER ==
--- NOTE | 2018-03-16 12:24 | DIAGNOSTIC IMAGING REPORT ---
CHEST 2 VIEWS ROUTINE CLINICAL HISTORY: Adenocarcinoma of right lung. Cough. COMPARISON STUDY: PET/CT November 24, [address] January 13, 2018. FINDINGS: There is no pneumothorax or pleural effusion. There is no consolidation to suggest pneumonia. Stable postoperative findings consistent with right lower lobectomy are noted. Expected right hemithorax volume loss is noted with elevation of the right hemidiaphragm and rightward mediastinal shift. The appearance of the chest is unchanged. There is no evidence for pulmonary edema. IMPRESSION: No acute cardiopulmonary findings. No change in appearance of the chest status post right lower lobectomy. Electronically signed by: Figueroa Cain M.D. 03/16/2018 12:23 PM Dictated Date/Time: 03/16/2018 12:17 PM
== END | disposition home or self-care (01) ==
LOC: C.RAD 10:40
PROVIDERS: ATTEND Nurse Practitioner
DX: C34.91 Malignant neoplasm of unspecified part of right bronchus or lung (principal); R05 Cough

== ENCOUNTER 2019-07-10 07:15 | Inpatient (IN) ==
--- NOTE | 2019-06-26 14:36 | Anesthesiology Consultation ---
Date of Service June 26, 2019 Assessment & Plan (1) Encounter for pre-operative examination: Chart Review Chart Review: Pending: Refer to Additional Notes / Consult section (Patient is on irbesartan. K=5.2 on preop labs up from baseline 4.7. Will check on AM of surgery to ensure it is not rising.) and Patient NOT seen in Pre Admission Testing Consults Requested none History Surgery Operation Date: 07/10/19 08:20 Proposed Procedures p Bilateral Breast Mastectomy with Bilateral [place] Lymph Node Biopsy - Tung Burch MD, FACS Height/Weight Height: 5 ft 2 in Weight: 79.832 kg Allergies Allergy/AdvReac Type Severity Reaction Status Date / Time codeine AdvReac Intermediate nausea/vomi Verified 06/26/19 08:32 ting simvastatin AdvReac Intermediate stiffness Verified 06/26/19 08:32 in hands Medications Home Medications Medication Instructions Recorded Confirmed Last Taken atorvastatin 20 mg tablet 20 mg PO HS #90 tab 06/06/19 06/26/19 Unknown calcium carbonate 500 mg (1,250 1 tab PO QAM tab 06/06/19 06/26/19 Unknown mg)-vitamin D3 200 unit tablet irbesartan 300 mg tablet 300 mg PO QAM #90 tab 06/06/19 06/26/19 Unknown krill 1 cap PO DAILY 06/06/19 06/26/19 Unknown wgw-ro-6-qps-mbk-kahkzhwlpobju 300 mg-90 mg-24 mg-50 mg capsule Aloe Vera Juice 1 tbsp PO DAILY 06/26/19 06/26/19 Unknown calcium zty-sfh-R6-Zn-endoscopy technican-radha 1 tab PO DAILY 06/26/19 06/26/19 Unknown cinnamon bark [Cinnamon] 2,000 mg PO DAILY 06/26/19 06/26/19 Unknown coenzyme Q10 [CoQ-10] 200 mg PO DAILY 06/26/19 06/26/19 Unknown Past Medical History Medical History Borderline type 2 diabetes mellitus q6 month bloodwork Breast cancer right breast (Stage 1A) Cyst of left kidney hx Hx of colonic polyp Hyperlipidemia Hypertension (Acute) Irritable bowel syndrome with diarrhea Lung cancer Osteoarthritis Plantar fasciitis current -- able to ambulate but does cause pain Squamous cell carcinoma of skin (Acute) Past Family History Family History Sister Family hx of colon cancer Past Surgical History Surgical History History of appendectomy History of colonoscopy History of kidney surgery packed left kidney with the fat around the kidney d/t unknown cause of fluid inside left kidney. cyst aspirated. no kidney problems now. History of lobectomy of lung right lower lobe Status post Mohs surgery Social History Smoking Status: Former smoker tobacco type: cigarettes Smoking cigarettes per day: 30 Do You Dip or Chew Tobacco: No Smoking End Date: november 2017 Hx Alcohol Use: Yes Alcohol type: beer alcohol intake frequency: a few times a week Hx Substance Use: No substance use type: does not use Testing Laboratory Results Laboratory Tests 06/09/18 06/20/19 06/20/19 08:09 07:37 07:37 WBC 5.49 Hgb 14.1 Hct 41.8 Plt Count 277 Sodium 141 Potassium 5.2 H Chloride 109 H Carbon Dioxide 27 Anion Gap 6.0 BUN 17 Creatinine 0.97 Glucose 123 H Hemoglobin A1c 6.3 H Electrocardiogram Date: 06/22/19 Findings: + NSR @ and + LBBB (chronic) Echocardiogram Date: 06/24/12 LV Function: normal Other Testing May 2019 CT Chest: Normal post lobectomy changes. Pimary Care: Cleared for surgery
--- NOTE | 2019-07-10 06:31 | History & Physical Report ---
Date of Service July 10, 2019 Assessment & Plan (1) Breast cancer, right: Patient is for bilateral mastectomy with bilateral sentinel lymph node biopsy This will be under general anesthesia at [facility] With observation History of Present Illness Primary Care Provider: JOHN Rai Patient is a 69-year-old female with a history of biopsy-proven right breast cancer She had 2 separate sites of invasive cancer She has a history of right lung cancer status post lobectomy She has seen Dr. Rodrigez who concurs with surgery Allergies Allergy/AdvReac Type Severity Reaction Status Date / Time codeine AdvReac Intermediate nausea/vomi Verified 07/10/19 08:42 ting simvastatin AdvReac Intermediate stiffness Verified 07/10/19 08:42 in hands Home Medications Home Medications Medication Instructions Recorded Confirmed Type atorvastatin 20 mg tablet 20 mg PO HS #90 tab 06/06/19 07/10/19 History calcium carbonate 500 mg (1,250 1 tab PO QAM tab 06/06/19 07/10/19 History mg)-vitamin D3 200 unit tablet krill 1 cap PO DAILY 06/06/19 07/10/19 History hbd-ov-5-nyb-abj-ncagfsiquguxp 300 mg-90 mg-24 mg-50 mg capsule Aloe Vera Juice 1 tbsp PO DAILY 06/26/19 07/10/19 History calcium oks-rdb-V6-Zn-supervisor blueprinting and photocopy-radha 1 tab PO DAILY 06/26/19 07/10/19 History cinnamon bark [Cinnamon] 2,000 mg PO DAILY 06/26/19 07/10/19 History coenzyme Q10 [CoQ-10] 200 mg PO DAILY 06/26/19 07/10/19 History Past Med/Surg History Medical History Borderline type 2 diabetes mellitus q6 month bloodwork Breast cancer right breast (Stage 1A) Cyst of left kidney hx Hx of colonic polyp Hyperlipidemia Hypertension (Acute) Irritable bowel syndrome with diarrhea Lung cancer Osteoarthritis Plantar fasciitis current -- able to ambulate but does cause pain Squamous cell carcinoma of skin (Acute) Surgical History History of appendectomy History of colonoscopy History of kidney surgery packed left kidney with the fat around the kidney d/t unknown cause of fluid inside left kidney. cyst aspirated. no kidney problems now. History of lobectomy of lung right lower lobe Status post Mohs surgery Family History Sister Family hx of colon cancer Social History Preferred Language: Italian Communication Ability: Effective Carpenter Foreman Required: No Beliefs That Will Affect Care: None Current Living Situation: Alone Other Information That Helps Us Care for You: No Feels Safe at Home: Yes Safety Concerns: Feels Safe At This Time Smoking Status: Former smoker Tobacco Type: cigarettes ; Cigarettes Per Day: 30 ; Do You Dip or Chew Tobacco: No ; Smoking End Date: november 2017 ; Second Hand Exposure: Yes ; Tobacco Cessation Education Requested by Patient: No Hx Alcohol Use: Yes Alcohol type: beer Hx Substance Use: No Review of Systems All systems reviewed & are unremarkable except as noted in HPI & below Physical Exam Physical Exam: Masses are not palpable in the right breast Constitutional: well developed and well nourished; no acute distress Eyes: + anicteric sclerae Respiratory: normal respiratory effort; no respiratory distress Cardiovascular: Rate/Rhythm: regular rate Gastrointestinal (Abdomen): Percussion/Palpation: abdomen soft Musculoskeletal: Gait: normal gait Skin: no rashes, warm and dry Neurologic: awake Psychiatric: Orientation: alert
[~2019-07-10 07:15] MED LIST changes: -AMLO5TAB2 PO; -ATOR-22 PO; +CEFAZOLIN 2000MG 2,000 MG/15 ML SYR IV SCH; -CHOL2000 PO; -CINN1CAP2 PO; -COEN200T PO; +LR 15ML/HR IV SCH; -MAGN400T6 PO; -OMEG12006 PO; -RXC5 PO
--- NOTE | 2019-07-10 08:43 | Nuclear Medicine Report ---
LYMPHOSCINTIGRAPHY RIGHT BREAST; LYMPHOSCINTIGRAPHY LEFT BREAST CLINICAL HISTORY: Breast cancer. Preoperative examination for bilateral mastectomy. PROCEDURE: Using standard sterile technique, 4 intradermal periareolar and one deep injection of 0.50 mCi of Lymphoseek was placed in the right breast and 0.52 mCi were placed in the left breast. The pa tient tolerated the procedure well. There were no immediate complications. The patient was subsequent ly transported to the surgical suite. No imaging was obtained at the referring physician's request. IMPRESSION: Injection of 0.50 mCi of Lymphoseek in the right breast and 0.52 mCi in the left breast a s above. Electronically signed by: Juan Miguel Rose M.D. 07/10/2019 8:42 AM
[2019-07-10 09:18] LABS: BUN Creatinine Ratio 22.1 (10-20); Calcium 9.8 mg/dl (8.5-10.1); Est GFR (African American) 66.6; Est GFR (Non-African American) 57.4; Potassium 4.2 mmol/L (3.5-5.1)
[2019-07-10] MEDS ORDERED: PROPOFOL IV EMULSION 10 MG/ML 20 ML VIAL IV ONE (09:43)
[2019-07-10] MEDS ORDERED: LIDOCAINE HCL 2% 2 ML VIAL/AMP(20MG/ML) INFIL ONE (09:43)
[2019-07-10] MEDS ORDERED: fentaNYL citrate 100 MCG/2 ML VIAL ONE ×2 (09:43→11:14)
[2019-07-10] MEDS ORDERED: ONDANSETRON INJ 2 MG/ML 2 ML VIAL ONE ×2 (09:43→13:23)
[2019-07-10] MEDS ORDERED: DEXAMETHASONE SOD INJ 4 MG/ML VIAL ONE (09:43)
[2019-07-10] MEDS ORDERED: ROCURONIUM BROMIDE 10 MG/ML 5 ML VIAL ONE ×2 (09:43→12:11)
[2019-07-10] MEDS ORDERED: MIDAZOLAM HCL 1 MG/ML 2ML VIAL ONE (09:43)
[2019-07-10] MEDS ORDERED: METOCLOPRAMIDE HCL INJ 5 MG/ML 2 ML VIAL IV PRN (10:14)
[2019-07-10] MEDS ORDERED: HYDROmorphone INJ 2 MG/ML SYR/VIAL IV PRN (10:14)
[2019-07-10] MEDS ORDERED: ePHEDrine sulfate 50 MG/ML AMP IV PRN (10:14)
[2019-07-10] MEDS ORDERED: DEXAMETHASONE SOD INJ 4 MG/ML VIAL IV PRN (10:14)
[2019-07-10] MEDS ORDERED: fentaNYL citrate 100 MCG/2 ML VIAL IV PRN (10:14)
[2019-07-10] MEDS ORDERED: PROMETHAZINE HCL 12.5 MG in SODIUM CHLORIDE 0.9% 50 ML IV PRN ×2 (10:14→15:46)
[2019-07-10] MEDS ORDERED: ATROPINE SULFATE 0.1 MG/ML 10ML SYR IV PRN (10:14)
[2019-07-10] MEDS ORDERED: ONDANSETRON INJ 2 MG/ML 2 ML VIAL IV PRN ×2 (10:14→15:46)
[2019-07-10] MEDS ORDERED: METHYLENE BLUE 0.5% 10 ML VIAL ONE (10:34)
[2019-07-10] MEDS ORDERED: BUPIVACAINE 0.5 % 5 MG/1 ML MPF 30ML VIAL ONE (10:34)
[2019-07-10] MEDS ORDERED: HYDROmorphone INJ 2 MG/ML SYR/VIAL ONE (11:49)
[2019-07-10] MEDS ORDERED: KETOROLAC 30 MG/ML VIAL ONE (13:24)
--- NOTE | 2019-07-10 13:39 | Post Operative Brief Note ---
PG Immediate Post Op with CF Date of Surgery July 10, 2019 Pre & Post Diagnosis Operation Date: 07/10/19 10:50 Pre-Op Diagnosis: Invasive Ductal Carcinoma Right Breast Post-Op Diagnosis: Invasive Ductal Carcinoma Right Breast I identified the patient and participated in the time-out.: Yes Procedure Operation Date: 07/10/19 10:50 Actual Procedures p Bilateral Breast Mastectomy with Bilateral [place] Lymph Node Biopsy - Tung Burch MD, FACS Surgeon Tung Burch MD, FACS Screed Operator Cande Sandra Estimated Blood Loss 30 Findings Consistent with Post-Op Diagnosis Specimens Specimen Description: #1. Frozen Section-Right breast sentinel lymph node #2. Frozen Section-Left breast sentinel lymph node Permanent Specimen A: Left breast, silk stitch winter lateral B: Right breast, silk stitch winter lateral Drains Cale-Perez Drain (15Fr. Round, bilateral breast)
[2019-07-10] MEDS ORDERED: ACETAMINOPHEN 1,000 MG/100 ML VIAL IV ONE (13:40)
--- NOTE | 2019-07-10 14:44 | Anesthesiology Progress Note ---
Date of Service July 10, 2019 Anesthesia Post Procedure Vital Signs Vital Signs: Temp Pulse Pulse Resp BP Pulse Ox 07/10/19 14:40 36.4 C L 62 16 145/47 H 94 07/10/19 14:30 63 14 145/57 H 96 07/10/19 14:20 67 12 150/57 H 94 07/10/19 14:10 71 14 158/61 H 97 07/10/19 14:00 67 12 168/69 H 96 07/10/19 13:53 36.4 C L 75 18 187/77 H 96 07/10/19 09:16 36.8 C 74 20 163/80 H 96 Transfer of Care Handoff Completed per policy Notes Mental Status: alert / awake / arousable and participated in evaluation Patient Amnestic to Procedure: Yes Nausea / Vomiting: adequately controlled Pain: adequately controlled Airway Patency, RR, SpO2: stable & adequate BP & HR: stable & adequate Hydration State: stable & adequate Anesthetic Complications: no major complications apparent
[2019-07-10] MEDS ORDERED: MoRPHine SULFATE 2 MG/ML CARP IV PRN ×2 (15:46)
[2019-07-10] MEDS ORDERED: HYDROCODONE/ACETAMOPHEN 5/325MG TAB PO PRN ×2 (15:46)
[2019-07-10] MEDS ORDERED: SODIUM CHLORIDE 0.9% 1000ML 1,000 ML IV SCH (15:46)
[2019-07-10] MEDS ORDERED: ACETAMINOPHEN 325 MG TAB PO PRN (15:46)
--- NOTE | 2019-07-10 17:02 | Operative Report ---
DATE OF OPERATION: 07/10/2019 NAME OF OPERATION: Bilateral mastectomy with bilateral sentinel lymph node biopsy. PREOPERATIVE DIAGNOSIS: Right breast cancer. POSTOPERATIVE DIAGNOSIS: Right breast cancer. STAFF SURGEON: Tung Burch MD. BOARD ATTENDANT: Irving Sandra PA-C. ANESTHESIA: General. DESCRIPTION OF PROCEDURE: The patient was brought in the operating room and placed on the operating table in supine position. Her arms were extended on an arm board. Her chest and axilla were prepped and draped bilaterally. Initially sentinel lymph node biopsy was performed on both sides, making incision in the axilla, carrying dissection down deeply using the Neoprobe identifying sentinel node. These were sent for a stat frozen section. During the frozen section, the left mastectomy was performed. The sentinel lymph nodes were negative. As a note, my marketing assistant manager helped with prepping, draping, mastectomy, sentinel lymph node biopsy and closure of the wounds. Elliptical incision was made in the left side from medial to lateral, sternum to axilla, around the nipple areolar complex, producing a superior and inferior chest wall flaps, dissecting the breast tissue away from the subcutaneous tissue and then away from the pectoralis major muscle. It was marked with a long silk suture lateral. A 15 round Cale-Perez drain placed into the left chest wound, secured to the skin using 3-0 nylon suture. Then the incision closed using 3-0 Vicryl for the subcutaneous tissue and 4-0 Monocryl as a running subcuticular suture with Steri-Strips applied. Right side was performed in identical manner with same closure and then Steri-Strips applied. Dressing applied and patient transferred to recovery room in stable condition. I attest to the content of the Intraoperative Record and any orders documented therein. Any exception s are noted below.
--- NOTE | 2019-07-10 17:48 | Consultation ---
Date of Consultation July 10, 2019 Assessment & Plan (1) Breast cancer, right: s/p b/l mastectomies with sentinel lymph node biopsies by Dr Burch today. Surgery went well and w/o any apparent complications. Defer fluid management, pain control, disposition to Dr Burch. Recommend BMP, CBC in am for stability. (2) Impaired fasting glucose: Last Hba1c was 6.3% earlier in June. Patient did receive perioperative steroids today as well. In light of pre-DM status and steroids will change diet to DM diet. Thus far her BSGs have been stable/controlled. Will add standing BSGs and, if elevated, supplemental insulin scale w/ novolog. (3) Hypercholesterolemia: Continue lipitor (4) Plantar fasciitis of left foot: Patient inquired about treatment options. She has used inserts, ice, etc. Consider dorsiflexion night splint - she can get this as an outpatient. Consider voltaren gel QID. Thank you for the consult. Will follow with you. History of Present Illness Requesting Physician: Tung Burch MD Reason for Consultation: post-op medical management Attending Physician: Tung Burch MD, [facility] History of Present Illness Pleasant 69yo female with recently diagnosed right- sided stage 1 breast cancer who presented today for b/l mastectomy with b/l sentinel lymph node biopsy by Dr Burch. I saw Ms Willoughby on the surgical floor post-op and she was resting comfortably with minimal pain from the surgery. She had eaten dinner w/o incident. She had nausea in the PACU but this resolved with anti-emetics. She denies any chest pain (except minimal pain related to mastectomies), dyspnea, abd pain, or vomiting. She has yet to void post-op. She overall had been feeling well at home recently. Allergies Allergy/AdvReac Type Severity Reaction Status Date / Time codeine AdvReac Intermediate nausea/vomi Verified 07/10/19 08:42 ting simvastatin AdvReac Intermediate stiffness Verified 07/10/19 08:42 in hands Home Medications Home Medications Medication Instructions Recorded Confirmed Type atorvastatin 20 mg tablet 20 mg PO HS #90 tab 06/06/19 07/10/19 History calcium carbonate 500 mg (1,250 1 tab PO QAM tab 06/06/19 07/10/19 History mg)-vitamin D3 200 unit tablet krill 1 cap PO DAILY 06/06/19 07/10/19 History lmw-th-1-svx-omj-yyxqckvcmauso 300 mg-90 mg-24 mg-50 mg capsule Aloe Vera Juice 1 tbsp PO DAILY 06/26/19 07/10/19 History calcium ggq-lok-L0-Zn-[employer]cre[employer]-radha 1 tab PO DAILY 06/26/19 07/10/19 History cinnamon bark [Cinnamon] 2,000 mg PO DAILY 06/26/19 07/10/19 History coenzyme Q10 [CoQ-10] 200 mg PO DAILY 06/26/19 07/10/19 History Patient History Medical History Borderline type 2 diabetes mellitus q6 month bloodwork Breast cancer right breast (Stage 1A) Cyst of left kidney hx Hx of colonic polyp Hyperlipidemia Hypertension (Acute) Irritable bowel syndrome with diarrhea Lung cancer Osteoarthritis Plantar fasciitis current -- able to ambulate but does cause pain Squamous cell carcinoma of skin (Acute) Surgical History History of appendectomy History of colonoscopy History of kidney surgery packed left kidney with the fat around the kidney d/t unknown cause of fluid inside left kidney. cyst aspirated. no kidney problems now. 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 [employer] Feels Safe at Home: Yes Safety Concerns: Feels Safe At This Time Smoking Status: Former smoker Tobacco Type: cigarettes ; Cigarettes Per Day: 30 ; Do You Dip or Chew Tobacco: No ; Smoking End Date: november 2017 ; Second Hand Exposure: Yes ; Tobacco Cessation Education Requested by Patient: No Hx Alcohol Use: Yes Alcohol type: beer Alcohol Intake Frequency: Weekly Hx Substance Use: No Review of Systems Constitutional: no fever, no chills and no fatigue Ear, Nose, Mouth, Throat: no sore throat and no dysphagia Respiratory: + cough; no dyspnea Cardiovascular: no chest pain, no dyspnea at rest, no orthopnea, no paroxysmal nocturnal dyspnea and no edema Gastrointestinal: no abdominal pain and no vomiting Genitourinary: no dysuria Musculoskeletal: no joint pain Neurologic: no localized weakness, no paralysis and no numbness Endocrine: "borderline" DM; took metformin previously; now not on meds Hematologic / Lymphatic: no easy bleeding Physical Exam Constitutional: well developed and well nourished; no acute distress and no altered mental status Eyes: PERRL ENMT: external ear and nose normal, oropharynx normal Neck: trachea midline, no thyromegaly Respiratory: normal respiratory effort, lungs clear to auscultation Cardiovascular: Rate/Rhythm: regular rate and regular rhythm Heart Sounds: normal S1 and normal S2; no murmur Vessels: posterior tibial pulses present and dorsalis pedis pulses present; no JVD Extremities: no edema Gastrointestinal (Abdomen): normal bowel sounds, soft, nontender, no hepatosplenomegaly Musculoskeletal: no cyanosis or clubbing, extremities motor strength 5/5 Skin: large dressings with binder in place over chest wall; drains in place Neurologic: deep tendon reflexes 2+ bilaterally and moves all extremities; no focal motor deficits Psychiatric: A+Ox3, euthymic affect Lymphatic: no cervical lymphadenopathy Results & Data Vital Signs (Past 12 Hours) Vital Signs Temp Pulse Pulse Resp BP Pulse Ox 07/10/19 17:28 36.4 C L 70 18 136/73 93 07/10/19 16:25 36.3 C L 65 18 156/69 H 93 07/10/19 16:12 36.8 C 94 H 18 159/71 H 97 07/10/19 15:00 69 15 139/58 L 95 07/10/19 14:50 66 12 145/55 H 95 07/10/19 14:40 36.4 C L 62 16 145/47 H 94 07/10/19 14:30 63 14 145/57 H 96 07/10/19 14:20 67 12 150/57 H 94 07/10/19 14:10 71 14 158/61 H 97 07/10/19 14:00 67 12 168/69 H 96 07/10/19 13:53 36.4 C L 75 18 187/77 H 96 12/02/19 09:16 36.8 C 74 20 163/80 H 96 Laboratory Results Laboratory Results - last 24 hr 07/10/19 07/10/19 07/10/19 08:49 08:57 13:58 Sodium 138 Potassium 4.2 Chloride 105 Carbon Dioxide 25 Anion Gap 8.0 BUN 22 H Creatinine 1.00 Est Cr Clr Drug Dosing 52.0 Est GFR ( Amer) 66.6 Est GFR (Non-Af Amer) 57.4 BUN/Creatinine Ratio 22.1 H Glucose 124 H POC Glucose 122 H 124 H Calcium 9.8 PG Care Time/CCT Total # of Minutes Spent Total Time Spent with Patient: Total time spent is greater than 50% in coordination of care (as documented) at patient's floor/unit and/or counseling patient: (1) Breast cancer, right Breast location: unspecified site of breast Estrogen receptor status: unspecified Patient sex: female Qualified Code(s): C50.911 - Malignant neoplasm of unspecified site of right female breast
[2019-07-10] MEDS: CEFAZOLIN 1000MG 1,000 MG/7.5 ML SYR IV SCH (19:48)
[2019-07-10] MEDS: IBUPROFEN 600 MG TAB PO PRN (20:08)
[2019-07-10] MEDS: ATORVASTATIN 20 MG TAB PO SCH (20:08)
[2019-07-11] MEDS: CEFAZOLIN 1000MG 1,000 MG/7.5 ML SYR IV SCH ×3 (03:04→19:01)
[2019-07-11] MEDS: IBUPROFEN 600 MG TAB PO PRN ×3 (03:04→19:01)
[2019-07-11 05:44] LABS: Hematocrit (blood only) 36.7 % (37-47); Hemoglobin 12.3 g/dL (12.0-16.0); Mean Corpuscular Hemoglobin 29.7 pg (25-34); Mean Corpuscular Hgb Conc 33.5 g/dL (32-36); Mean Corpuscular Volume 88.6 fL (80-100); Mean Platelet Volume 9.5 fL (7.4-10.4); Platelet Count 225 K/uL (130-400); RDW Coefficient of Variation 13.1 % (11.5-14.5); RDW Standard Deviation 42.5 fL (36.4-46.3); Red Blood Count 4.14 M/uL (4.2-5.4); White Blood Count 9.42 K/uL (4.8-10.8)
[2019-07-11 06:17] LABS: BUN Creatinine Ratio 20.2 (10-20); Calcium 8.6 mg/dl (8.5-10.1); Creatinine Clr Calc Pharmacy 48.4 ml/min; Est GFR (African American) 59.3; Est GFR (Non-African American) 51.2; Potassium 4.3 mmol/L (3.5-5.1)
--- NOTE | 2019-07-11 06:28 | Surgery Progress Note ---
Date of Service July 11, 2019 Assessment & Plan (1) S/P bilateral mastectomy: awake, alert, vitals stable drains- serosang- expected- no evidence of bleeding dressing in place- no evidence of hematoma supportive care, probable visiting nurse nurse navigator to see, plan d/c tomorrow 07/12 Results & Data Vital Signs (Past 12 Hours) Vital Signs Temp Pulse Resp BP Pulse Ox 07/11/19 03:00 36.4 C L 73 16 153/73 H 94 07/10/19 22:48 36.6 C 79 16 136/79 95 07/10/19 19:00 36.7 C 104 H 16 146/74 H 94 PG Care Time/CCT Total # of Minutes Spent Total Time Spent with Patient: Total time spent is greater than 50% in coordination of care (as documented) at patient's floor/unit and/or counseling patient:
--- NOTE | 2019-07-11 08:18 | Anesthesiology Progress Note ---
Date of Service July 11, 2019 Anesthesia Post Procedure Vital Signs Vital Signs: Temp Pulse Pulse Resp BP Pulse Ox 07/11/19 07:25 36.4 C L 74 16 154/75 H 96 07/11/19 03:00 36.4 C L 73 16 153/73 H 94 07/10/19 22:48 36.6 C 79 16 136/79 95 07/10/19 19:00 36.7 C 104 H 16 146/74 H 94 07/10/19 17:28 36.4 C L 70 18 136/73 93 07/10/19 16:25 36.3 C L 65 18 156/69 H 93 07/10/19 16:12 36.8 C 94 H 18 159/71 H 97 07/10/19 15:00 69 15 139/58 L 95 07/10/19 14:50 66 12 145/55 H 95 07/10/19 14:40 36.4 C L 62 16 145/47 H 94 07/10/19 14:30 63 14 145/57 H 96 07/10/19 14:20 67 12 150/57 H 94 07/10/19 14:10 71 14 158/61 H 97 07/10/19 14:00 67 12 168/69 H 96 07/10/19 13:53 36.4 C L 75 18 187/77 H 96 07/10/19 09:16 36.8 C 74 20 163/80 H 96 Notes Mental Status: alert / awake / arousable and participated in evaluation Patient Amnestic to Procedure: Yes Nausea / Vomiting: adequately controlled Pain: adequately controlled Airway Patency, RR, SpO2: stable & adequate BP & HR: stable & adequate Hydration State: stable & adequate Anesthetic Complications: no major complications apparent and Pt Satisfied with anesthetic care
[2019-07-11] MEDS: HEPARIN SOD 5,000 UNIT/0.5 ML VIAL SQ SCH ×2 (09:30→21:29)
--- NOTE | 2019-07-11 20:03 | Hospitalist Progress Note ---
Date of Service July 11, 2019 Assessment & Plan (1) Breast cancer, right: POD #1 - s/p b/l mastectomies with sentinel lymph node biopsies by Dr Burch. Surgery went well and w/o any apparent complications. Vitals/labs remain stable. Patient feeling well. Defer pain control, disposition planning to Dr Burch. (2) Impaired fasting glucose: Last Hba1c was 6.3% earlier in June. Due to perioperative steroids she had one BSG last pm that was elevated. The rest of her BSGs have been controlled since. Cont T2DM diet. (3) Hypercholesterolemia: Continue lipitor (4) Plantar fasciitis of left foot: Consider dorsiflexion night splint - she can get this as an outpatient. Consider voltaren gel QID prn if ok with Dr Burch. Pain is actually improved today - suspect due to the decadron given to her yesterday. From medical standpoint patient is stable. Will sign off for now. Please re-consult if needed. Thank you for the consult. Subjective patient states she is "feeling good" eating well, passing flatus, mild soreness of mastectomy sites only no dyspnea no substernal chest pain no abd pain no nausea left foot pain from plantar fascitis is markedly improved today Review of Systems Constitutional: no fever Respiratory: no cough and no dyspnea Cardiovascular: no chest pain Gastrointestinal: no abdominal pain, no nausea and no vomiting Physical Exam Constitutional: well developed and well nourished; no acute distress ENMT: external ear and nose normal, oropharynx normal Respiratory: normal respiratory effort, lungs clear to auscultation Cardiovascular: Rate/Rhythm: regular rate and regular rhythm Heart Sounds: normal S1 and normal S2; no murmur Vessels: posterior tibial pulses present a nd dorsalis pedis pulses present; no JVD Extremities: no edema Gastrointestinal (Abdomen): normal bowel sounds, soft, nontender, no hepatosplenomegaly Psychiatric: A+Ox3, euthymic affect Results & Data Vital Signs (Past 12 Hours) Vital Signs Temp Pulse Resp BP Pulse Ox 07/11/19 15:19 36.7 C 92 H 16 151/74 H 94 07/11/19 11:33 36.4 C L 81 16 152/73 H 92 Laboratory Results Laboratory Results - last 24 hr 07/10/19 07/11/19 07/11/19 20:37 05:13 05:13 WBC 9.42 RBC 4.14 L Hgb 12.3 Hct 36.7 L MCV 88.6 MCH 29.7 MCHC 33.5 RDW Std Deviation 42.5 RDW Coeff of Iam 13.1 Plt Count 225 MPV 9.5 Sodium 138 Potassium 4.3 Chloride 108 H Carbon Dioxide 24 Anion Gap 6.0 BUN 22 H Creatinine 1.10 Est Cr Clr Drug Dosing 48.4 Est GFR ( Amer) 59.3 Est GFR (Non-Af Amer) 51.2 BUN/Creatinine Ratio 20.2 H Glucose 126 H POC Glucose 203 H Calcium 8.6 07/11/19 07/11/19 07/11/19 08:21 12:21 18:00 WBC RBC Hgb Hct MCV MCH MCHC RDW Std Deviation RDW Coeff of Iam Plt Count MPV Sodium Potassium Chloride Carbon Dioxide Anion Gap BUN Creatinine Est Cr Clr Drug Dosing Est GFR ( Amer) Est GFR (Non-Af Amer) BUN/Creatinine Ratio Glucose POC Glucose 113 H 108 H 138 H Calcium PG Care Time/CCT Total # of Minutes Spent Total Time Spent with Patient: Total time spent is greater than 50% in coordination of care (as documented) at patient's floor/unit and/or counseling patient: (1) Breast cancer, right Breast location: unspecified site of breast Estrogen receptor status: unspecified Patient sex: female Qualified Code(s): C50.911 - Malignant neoplasm of unspecified site of right female breast
[2019-07-11] MEDS: ATORVASTATIN 20 MG TAB PO SCH (21:29)
[2019-07-12] MEDS: CEFAZOLIN 1000MG 1,000 MG/7.5 ML SYR IV SCH (04:09)
[2019-07-12] MEDS: HEPARIN SOD 5,000 UNIT/0.5 ML VIAL SQ SCH (07:59)
--- NOTE | 2019-07-12 09:08 | Discharge Summary ---
PRINCIPAL DIAGNOSIS: Right breast cancer. PROCEDURES: The patient underwent bilateral mastectomy with bilateral sentinel lymph node biopsy. HISTORY OF PRESENT ILLNESS: The patient is a 69-year-old female with a biopsy proven right breast cancer in 2 sites. She elected for prophylactic left mastectomy as well as right mastectomy. HOSPITAL COURSE: She was brought into the hospital on 07/10/2019, where she underwent bilateral mastectomy with bilateral sentinel lymph node biopsy which she tolerated very well. She is doing very well. She is awake and alert. Her wounds are stable with drains in place. She is felt stable for discharge home today to be followed in the surgical clinic early next week.
== END 2019-07-12 10:54 | disposition home health service (06) | DRG 581 ==
LOC: ASU 07:15 → 3N 07:15